=== PATIENT | male | born 1965 | race Caucasian/White ===

== ENCOUNTER 2019-05-28 15:26 | Outpatient (CLI) | payer BC, OTHER ==
[2019-05-28] MEDS ORDERED: BUDE10.22 INH (16:00)
[2019-05-28] MEDS ORDERED: ATOR40TA78 PO (16:00)
[2019-05-28 16:25] LABS: BASOPHILS # (AUTO) 0.04 x10^3/uL (0-0.1); BASOPHILS % (AUTO) 1 % (0-1); EOSINOPHILS # (AUTO) 0.79 x10^3/uL (0-0.4); EOSINOPHILS % (AUTO) 9 % (1-7); LYMPHOCYTES # (AUTO) 2.11 x10^3/uL (1-3.4); LYMPHOCYTES % (AUTO) 24 % (22-44); MD NO; MEAN CORPUSCULAR HEMOGLOBIN 32.3 pg (27.5-34.5); MEAN CORPUSCULAR HGB CONC 33.6 g/dL (33.2-36.2); MEAN CORPUSCULAR VOLUME 96.1 fL (81-97); MEAN PLATELET VOLUME 8.3 fL (7.4-10.4); MONOCYTES # (AUTO) 0.86 x10^3/uL (0.2-0.8); MONOCYTES % (AUTO) 10 % (2-9); NEUTROPHILS # (AUTO) 5.07 x10^3/uL (1.8-6.8); NEUTROPHILS % (AUTO) 57 % (42-75); PLATELET COUNT 208 x10^3/uL (130-400); RED BLOOD COUNT 5.09 x10^6/uL (4.38-5.82); RED CELL DISTRIBUTION WIDTH 13.2 % (9.4-14.8)
[2019-05-28 16:33] LABS: INTERNATIONAL NORMALIZED RATIO 0.97 (0.93-1.1); PROTHROMBIN TIME 10.3 Seconds (9.6-11.5)
[2019-05-28 16:35] LABS: ANION GAP 6 mmol/L (5-15); CALCIUM 8.8 mg/dL (8.5-10.1); CHLORIDE 109 mmol/L (98-107)
[2019-05-28 16:36] LABS: CREATININE 1.03 mg/dL (0.7-1.3)
== END 2019-05-28 23:59 | disposition home or self-care (01) ==
LOC: STAR 15:26
PROVIDERS: ATTEND Neurological Surgery
DX: Z01.818 Encounter for other preprocedural examination (principal); M51.26 Other intervertebral disc displacement, lumbar region
CPT/HCPCS: 36415; 71046; 80048; 85025; 85610; 85730; 93005

== ENCOUNTER → 2019-05-28 | Day surgery (SDC) | payer OTHER ==
[~2019-05-28] VITALS: Ht 188 cm; Wt 97.7 kg
[~2019-05-28] MED LIST: ATOR40TA78 PO; BUDE10.22 INH
== END | disposition home or self-care (01) ==
LOC: OR 15:28
PROVIDERS: ATTEND Neurological Surgery
DX: Z02.9 Encounter for administrative examinations, unspecified (principal)

== ENCOUNTER 2019-06-05 05:40 | Day surgery (SDC) | payer OTHER ==
[~2019-06-05] VITALS: Ht 188 cm; Wt 97.7 kg
[2019-06-05] MEDS ORDERED: LACTATED RINGERS 1,000 ML IV SCH (06:18)
[2019-06-05 06:19] VITALS: BP 123/75
[2019-06-05] MEDS ORDERED: BUPIVACAINE/PF 0.5% ONE (06:47)
[2019-06-05] MEDS ORDERED: BACITRACIN 50,000 UNIT ONE (06:48)
[2019-06-05] MEDS ORDERED: EPINEPHRINE 1 MG/ML, 1ML ONE (06:48)
[2019-06-05] MEDS ORDERED: FENTANYL PF 250 MCG/5ML ONE (07:02)
[2019-06-05] MEDS ORDERED: PROPOFOL 50 ML ONE (07:02)
[2019-06-05] MEDS ORDERED: MIDAZOLAM 1 MG/ML, 2ML ONE (07:02)
[2019-06-05] MEDS ORDERED: SUCCINYLCHOLINE 20 MG/ML, 10ML ONE (07:25)
[2019-06-05] MEDS ORDERED: CEFAZOLIN 1,000 MG ONE (07:25)
[2019-06-05] MEDS ORDERED: ROCURONIUM 10MG/ML,5ML ONE (07:34)
[2019-06-05] MEDS ORDERED: ONDANSETRON 2MG/ML, 2ML ONE (07:34)
[2019-06-05] MEDS ORDERED: DEXAMETHASONE 4 MG/ML, 1ML ONE ×3 (07:35)
[2019-06-05] MEDS ORDERED: DIAZEPAM 5 MG/ML, 2ML IVPush PRN (08:00)
[2019-06-05] MEDS ORDERED: ONDANSETRON ODT 8 MG PO PRN (08:00)
[2019-06-05] MEDS ORDERED: LABETALOL 5MG/ML, 20ML IV PRN (08:00)
[2019-06-05] MEDS ORDERED: EPHEDRINE 50 MG/ML, 1ML IVPush PRN (08:00)
[2019-06-05] MEDS ORDERED: FENTANYL PF 100 MCG/2ML IV PRN (08:00)
[2019-06-05] MEDS ORDERED: MORPHINE SULFATE 4 MG/ML, 1ML IVPush PRN (08:00)
[2019-06-05] MEDS ORDERED: EPHEDRINE 50 MG/ML, 1ML IM PRN (08:00)
[2019-06-05] MEDS ORDERED: PROMETHAZINE 25 MG/ML, 1ML IV PRN (08:00)
[2019-06-05] MEDS ORDERED: DIPHENHYDRAMINE 50 MG/ML, 1ML IVPush PRN (08:00)
[2019-06-05] MEDS ORDERED: OXYcodone 5 MG/5 ML ORAL.SOL UDC PO PRN (08:00)
[2019-06-05] MEDS ORDERED: ONDANSETRON 2MG/ML, 2ML IV PRN (08:00)
[2019-06-05] MEDS ORDERED: MEPERIDINE/PF 25MG/ML,1ML IVPush PRN (08:00)
[2019-06-05] MEDS ORDERED: MIDAZOLAM 1 MG/ML, 2ML IV PRN (08:00)
== END 2019-06-05 10:50 | disposition home or self-care (01) ==
LOC: OUT 05:40
PROVIDERS: ATTEND Neurological Surgery
DX: M51.26 Other intervertebral disc displacement, lumbar region (principal); M51.16 Intervertebral disc disorders with radiculopathy, lumbar region; E78.00 Pure hypercholesterolemia, unspecified; J43.9 Emphysema, unspecified; Z98.890 Other specified postprocedural states; Z91.013 Allergy to seafood; Z79.899 Other long term (current) drug therapy; Z87.891 Personal history of nicotine dependence
CPT/HCPCS: 63030; 72100; J0171; J0330; J0690; J1100; J2250; J2405; J2704; J3010